=== PATIENT | male | born 1985 | race Caucasian/White ===

== ENCOUNTER 2024-08-01 13:09 | Inpatient (IN) | payer OTHER, SELFPAY ==
[2024-08-01] VITALS (19 sets, daily range): BP systolic 117–143; BP diastolic 59–81; PULSE 86–114; RESP 14–24; TEMP 36.4; O2SAT 97–100; BMI 47.5
[2024-08-01] MEDS: PANTOPRAZOLE 40 MG VIAL 80 MG IV (13:33)
--- NOTE | 2024-08-01 13:37 | EKG_ITS ---
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
[2024-08-01 13:40] LABS: Add Manual Diff / Slide Review NO; Basophils Absolute Auto 200 /uL (0-100); Basophils Percent Auto 1.2 % (0-2); Eosinophils Absolute Auto 100 /uL (0-450); Eosinophils Percent Auto 0.9 % (2-4); Hematocrit 36.7 % (41-53); Lymphocytes Absolute Auto 2900 /uL (1100-4500); Lymphocytes Percent Auto 23.2 % (25-40); Mean Corpuscular HGB Conc 32.6 % (30-36); Mean Corpuscular Hemoglobin 29.8 PG (26-34); Mean Corpuscular Volume 91.4 fL (80-100); Monocytes Absolute Auto 800 /uL (0-900); Monocytes Percent Auto 6.3 % (3-14); Neutrophils Absolute Auto 8500 /uL (1500-7000); Neutrophils Percent Auto 68.4 % (50-75); Platelet Count 197 X10^3/uL (150-400); Red Blood Cell Count 4.02 X10^6/uL (4.5-5.9); Red Cell Distribution Width 13.5 % (11.6-14.8); White Blood Cell Count 12.4 X10^3/uL (4.5-11.0)
[2024-08-01 13:43] LABS: Prothrombin Time 11.1 SECONDS (9.4-12.5)
[2024-08-01 13:46] LABS: PTT Partial Thromboplastin Tim 30 SECONDS (25.1-36.5)
--- NOTE | 2024-08-01 13:47 | ED.GIBLEED ---
HPI - GI Bleed General Chief complaint: GI Bleed Stated complaint: abd pain, black stool, light headed, sob Time Seen by Provider: 08/01/24 13:24 Source: patient Mode of arrival: Ambulatory History of Present Illness HPI Narrative: Patient is a 39-year-old male. No recent travel. No recent antibiotics. Not on anticoagulation. States last evening had some upper abdominal discomfort and chest discomfort. He states that he did not do anything about it but went to bed. When he woke up this morning he had a bowel movement that was black in color and ?tarry? he was had 2 subsequent bowel movements that have been the same. His abdominal pain is now gone. He states that today he was feeling very lightheaded and short of breath. No fevers. No urinary symptoms. No prior abdominal surgeries. No trauma. No lower extremity swelling. Related Data Allergies Allergy/AdvReac Type Severity Reaction Status Date / Time No Known Drug Allergies Allergy Verified 08/01/24 13:18 Review of Systems Review of Systems ROS Unobtainable: All systems reviewed & are unremarkable except as noted in HPI and below Patient History Social History Smoking Status: Never smoker Smoking Status: Never smoker Alcohol type: beer Exam Initial Vital Signs Initial Vital Signs: Vital Signs Temperature 97.6 F 08/01/24 13:16 Pulse Rate 109 H 08/01/24 13:16 Respiratory Rate 16 08/01/24 13:16 Blood Pressure 133/63 08/01/24 13:16 Pulse Oximetry 100 08/01/24 13:16 Oxygen Delivery Method Room Air 08/01/24 13:16 Const General: cooperative, comfortable and No ill appearing HENNH Head: normal to inspection and normocephalic Resp Effort & Inspection: normal respiratory effort Auscultation: clear to auscultation bilaterally Cardio Rate: tachycardic Rhythm: regular rhythm GI Inspection: normal to inspection and non-distended Palpation: soft, No firm and No tender Skin General: no rashes or lesions noted Neuro General: patient alert, patient awake, patient oriented x3 and moves all extremities Extrem General: No edema Course Orders Ordered: ED Orders 08/01/24 13:19 EKG-12 Lead Stat 08/01/24 13:28 Complete Blood Count AUTO DIFF Stat Comprehensive Metabolic Panel Stat PTT Partial Thromboplastin Roberto Carlos Stat Prothrombin Time INR Stat Type and Screen Stat 08/01/24 13:49 CT angio Abd/Pel GI Bleed Stat 08/01/24 14:09 GI Panel (Film Array) Stat 08/01/24 16:05 Hemoglobin and Hematocrit Stat 08/01/24 18:03 Hemoglobin and Hematocrit Stat 08/01/24 18:35 Consult to General Surgery Stat Ondansetron HCl (Ondansetron 4 Mg/2 Ml Inj) 4 mg IV NOW PRN PRN Reason: Nausea And Vomiting Ondansetron HCl (Ondansetron 4 Mg Odt) 4 mg SL NOW PRN PRN Reason: Nausea And Vomiting Discontinued Medications Pantoprazole Sodium (Pantoprazole 40 Mg Vial) 80 mg IV NOW ONE Stop: 08/01/24 13:20 Last Admin: 08/01/24 13:33 Dose: 80 mg Documented By: ANTHONY Vital Signs Vital signs: Vital Signs - 8 hr 08/01/24 13:16 08/01/24 13:16 08/01/24 13:17 Temperature 97.6 F Pulse Rate 109 H 106 H 108 H Respiratory Rate 16 Blood Pressure 133/63 Pulse Oximetry 100 100 100 Oxygen Delivery Method Room Air 08/01/24 13:17 08/01/24 13:30 08/01/24 13:32 Temperature Pulse Rate 97 H 99 H Respiratory Rate 21 20 Blood Pressure 133/63 Pulse Oximetry 100 100 Oxygen Delivery Method Room Air 08/01/24 13:32 08/01/24 14:14 08/01/24 14:37 Temperature Pulse Rate 114 H 100 H Respiratory Rate Blood Pressure 123/75 Pulse Oximetry Oxygen Delivery Method 08/01/24 14:43 08/01/24 14:43 08/01/24 15:00 Temperature Pulse Rate 98 H 95 H Respiratory Rate 22 22 Blood Pressure 136/76 Pulse Oximetry 100 99 Oxygen Delivery Method Room Air 08/01/24 15:00 08/01/24 15:30 08/01/24 15:30 Temperature Pulse Rate 87 Respiratory Rate 22 Blood Pressure 143/81 H 142/75 H Pulse Oximetry 100 Oxygen Delivery Method 08/01/24 16:00 08/01/24 16:00 08/01/24 16:39 Temperature Pulse Rate 91 H 98 H Respiratory Rate 24 Blood Pressure 138/76 Pulse Oximetry 98 100 Oxygen Delivery Method 08/01/24 16:42 08/01/24 16:42 08/01/24 17:00 Temperature Pulse Rate 93 H 90 Respiratory Rate 22 16 Blood Pressure 140/67 Pulse Oximetry 100 100 Oxygen Delivery Method Room Air 08/01/24 17:00 08/01/24 17:30 08/01/24 17:30 Temperature Pulse Rate 90 Respiratory Rate 23 Blood Pressure 126/67 119/63 Pulse Oximetry 97 Oxygen Delivery Method 08/01/24 18:00 08/01/24 18:00 08/01/24 18:30 Temperature Pulse Rate 86 86 Respiratory Rate 23 24 Blood Pressure 131/75 Pulse Oximetry 100 100 Oxygen Delivery Method Room Air MDM - GI Bleed Lab Data Attestation: I reviewed the patient's lab results. 08/01/24 18:03 08/01/24 13:28 Labs: Lab Results 08/01/24 08/01/24 08/01/24 Range/Units 13:28 14:09 16:05 WBC 12.4 H (4.5-11.0) X10^3/uL RBC 4.02 L (4.5-5.9) X10^6/uL Hgb 12.0 L 11.0 L (13.5-17.5) g/dL Hct 36.7 L 33.3 L (41-53) % MCV 91.4 (80-100) fL MCH 29.8 (26-34) PG MCHC 32.6 (30-36) % RDW 13.5 (11.6-14.8) % Plt Count 197 (150-400) X10^3/uL Neut % (Auto) 68.4 (50-75) % Lymph % (Auto) 23.2 L (25-40) % [place] % (Auto) 6.3 (3-14) % Eos % (Auto) 0.9 L (2-4) % Baso % (Auto) 1.2 (0-2) % Neut # (Auto) 8500 H (1295-3215) /uL Lymph # (Auto) 2900 (2584-0673) /uL [place] # (Auto) 800 (0-900) /uL Eos # (Auto) 100 (0-450) /uL Baso # (Auto) 200 H (0-100) /uL PT 11.1 (9.4-12.5) SECONDS INR 1.0 (0.9-1.3) APTT 30 (25.1-36.5) SECONDS Sodium 136 L (137-145) mmol/L Potassium 3.5 (3.4-5.1) mmol/L Chloride 102 (98-107) mmol/L Carbon Dioxide 28 (22-32) mmol/L BUN 55 H (9-20) mg/dL Creatinine 1.02 (0.66-1.25) mg/dL Estimated GFR > 60 (>60) mL/min BUN/Creatinine Ratio 53.9 H (6-22) Glucose 103 H (70-100) mg/dL Calcium 9.1 (8.4-10.2) mg/dL Total Bilirubin 0.7 (0.2-1.3) mg/dL AST 23 (17-59) IU/L ALT 25 (<50) IU/L Alkaline Phosphatase 45 (38-126) U/L Total Protein 7.0 (6.3-8.2) g/dL Albumin 4.2 (3.5-5.0) g/dL Globulin 2.8 (1.7-4.1) g/dL Albumin/Globulin Ratio 1.5 (1.0-2.8) Stl C. cayetanensis PCR Not detected (Not Detect) Stool Rotavirus (PCR) Not detected (Not Detect) Stool Adenovirus (PCR) Not detected (Not Detect) Stool Astrovirus (PCR) Not detected (Not Detect) Stool Cryptosporidium PCR Not detected (Not Detect) Stl E.coli Shiga Tox PCR Not detected (Not Detect) St Sh/Enteroin Ecoli PCR Not detected (Not Detect) Stl Enterotoxigenic E PCR Detected (Not Detect) Stool EPEC (PCR) Not detected (Not Detect) Stl E. histolytica PCR Not detected (Not Detect) Stool Giardia Lamblia PCR Not detected (Not Detect) Stool Sapovirus (PCR) Not detected (Not Detect) Stl P. shigelloides PCR Not detected (Not Detect) St Y.enterocolitica PCR Not detected (Not Detect) Stool Vibrio (PCR) Not detected (Not Detect) Stl Vibrio cholerae PCR Not detected (Not Detect) Stl Enteroaggr Ecoli PCR Not detected (Not Detect) Stl Norovirus GI/GII PCR Not detected (Not Detect) Campylobacter (PCR) Not detected (Not Detect) C. difficile Tox (PCR) Detected H (Not Detect) Salmonella (PCR) Not detected (Not Detect) Blood Type B Positive Antibody Screen Negative 08/01/24 Range/Units 18:03 WBC (4.5-11.0) X10^3/uL RBC (4.5-5.9) X10^6/uL Hgb 10.7 L (13.5-17.5) g/dL Hct 32.7 L (41-53) % MCV (80-100) fL MCH (26-34) PG MCHC (30-36) % RDW (11.6-14.8) % Plt Count (150-400) X10^3/uL Neut % (Auto) (50-75) % Lymph % (Auto) (25-40) % [place] % (Auto) (3-14) % Eos % (Auto) (2-4) % Baso % (Auto) (0-2) % Neut # (Auto) (5898-4772) /uL Lymph # (Auto) (3997-3745) /uL [place] # (Auto) (0-900) /uL Eos # (Auto) (0-450) /uL Baso # (Auto) (0-100) /uL PT (9.4-12.5) SECONDS INR (0.9-1.3) APTT (25.1-36.5) SECONDS Sodium (137-145) mmol/L Potassium (3.4-5.1) mmol/L Chloride (98-107) mmol/L Carbon Dioxide (22-32) mmol/L BUN (9-20) mg/dL Creatinine (0.66-1.25) mg/dL Estimated GFR (>60) mL/min BUN/Creatinine Ratio (6-22) Glucose (70-100) mg/dL Calcium (8.4-10.2) mg/dL Total Bilirubin (0.2-1.3) mg/dL AST (17-59) IU/L ALT (<50) IU/L Alkaline Phosphatase (38-126) U/L Total Protein (6.3-8.2) g/dL Albumin (3.5-5.0) g/dL Globulin (1.7-4.1) g/dL Albumin/Globulin Ratio (1.0-2.8) Stl C. cayetanensis PCR (Not Detect) Stool Rotavirus (PCR) (Not Detect) Stool Adenovirus (PCR) (Not Detect) Stool Astrovirus (PCR) (Not Detect) Stool Cryptosporidium PCR (Not Detect) Stl E.coli Shiga Tox PCR (Not Detect) St Sh/Enteroin Ecoli PCR (Not Detect) Stl Enterotoxigenic E PCR (Not Detect) Stool EPEC (PCR) (Not Detect) Stl E. histolytica PCR (Not Detect) Stool Giardia Lamblia PCR (Not Detect) Stool Sapovirus (PCR) (Not Detect) Stl P. shigelloides PCR (Not Detect) St Y.enterocolitica PCR (Not Detect) Stool Vibrio (PCR) (Not Detect) Stl Vibrio cholerae PCR (Not Detect) Stl Enteroaggr Ecoli PCR (Not Detect) Stl Norovirus GI/GII PCR (Not Detect) Campylobacter (PCR) (Not Detect) C. difficile Tox (PCR) (Not Detect) Salmonella (PCR) (Not Detect) Blood Type Antibody Screen Point of Care Testing Stool Occult Blood Positive Urine Dip Bedside Urine Glucose Negative Bedside Urine Bilirubin - Negative Bedside Urine Ketone - Negative Urine Specific [place] 1.015 Bedside Urine Occult Blood - Negative Bedside Urine pH 6.0 Bedside Urine Protein - Negative Bedside Urine Urobilinogen - Negative Bedside Urine Nitrite - Negative Bedside Urine Leukocytes - Negative Esterase Imaging Data CT scan - abdomen/pelvis: Radiologist's Impression: PROCEDURE: CT ANGIO ABD/PEL GI BLEED INDICATIONS: GI Bleed TECHNIQUE: After the administration of intravenous contrast, 2.5 mm thick sections acquired from the diaphragm to the symphysis. 10 mm maximum-intensity projection (MIP) reformats were then acquired. For radiation dose reduction, the following was used: automated exposure control. COMPARISON: None. FINDINGS: Image Quality: Diagnostic. Abdominal aorta: No aortic aneurysm or evidence of acute aortic syndrome. Mesenteric arteries: Patent without hemodynamically significant stenosis. Renal arteries: Patent without hemodynamically significant stenosis. OTHER: Lower Chest: No significant findings. Liver: No solid mass. Gallbladder: No radiopaque gallstones or wall thickening. Biliary ducts: No biliary dilation. Pancreas: No ductal dilation. Spleen: Size is within normal limits. Adrenal Glands: No adrenal nodules. Kidneys and Ureters: No hydronephrosis. No solid mass. No complex renal cystic lesion which requires follow up. Stomach and Bowel: Moderate hiatal hernia. Normal colonic caliber, without significant wall thickening. Mild diverticulosis without evidence of acute diverticulitis. No acute bowel hemorrhage. Peritoneum: No abnormal intraperitoneal fluid. No free air. Ventral Wall: No hernia. Abdominal Nodes: No retroperitoneal or mesenteric adenopathy by size criteria. Vessels: Aorta and inferior vena cava are normal in size. PELVIS: Pelvic Organs: Unremarkable. Bladder: Unremarkable. Pelvic Nodes: No enlarged lymph nodes. Miscellaneous: Small fat containing left inguinal hernia. Bones: No aggressive osseous abnormality. IMPRESSION: 1. No evidence of acute GI bleed. 2. Moderate hiatal hernia. 3. Mild diverticulosis without evidence of acute diverticulitis. 4. No acute abdominal process. ECG Data Attestation: I personally reviewed and interpreted this ECG as follows: Interpretation: Sinus rhythm Ventricular rate 97 Normal axis Normal QRS Normal QTC No ST T wave changes MDM Narrative Medical decision making narrative: Patient did have a drop in his hemoglobin and hematocrit over multiple checks in the emergency department. He did have black tarry stool here in the ER. He was not having diarrhea. No vomiting. No specific risk factors for an upper GI bleed. He was positive for entero toxigenic E coli and C diff however his stools are not consistent with active infections of these bacteria. We will hold on any antibiotics for now. Patient was still symptomatic with standing. Discussed the case with Dr. Valle on-call for General surgery who recommended the patient be made NPO after midnight that he would see the patient in the morning to discuss upper endoscopy. I also discussed the case with Dr. Irizarry hospitalist on-call who will admit. Discussed the need for admission with the patient. He expressed understanding and agreement with plan. Discharge Plan Departure Patient Disposition: Admitted as Observation Clinical Impression: Melena, Anemia
[2024-08-01 13:50] LABS: Alanine Aminotransferase 25 IU/L (<50); Albumin 4.2 g/dL (3.5-5.0); Albumin Globulin Ratio 1.5 (1.0-2.8); Alkaline Phosphatase 45 U/L (38-126); Aspartate Aminotransferase 23 IU/L (17-59); BUN Creatinine Ratio 53.9 (6-22); Bilirubin Total 0.7 mg/dL (0.2-1.3); Blood Urea Nitrogen 55 mg/dL (9-20); Calcium 9.1 mg/dL (8.4-10.2); Carbon Dioxide 28 mmol/L (22-32); Chloride 102 mmol/L (98-107); Estimated Glomerular Filt Rate > 60 mL/min (>60); Globulin 2.8 g/dL (1.7-4.1); Glucose 103 mg/dL (70-100); HEMOLYSIS < 15 (0-50); Potassium 3.5 mmol/L (3.4-5.1); Sodium 136 mmol/L (137-145)
[2024-08-01 16:12] LABS: Hematocrit 33.3 % (41-53)
[2024-08-01 18:05] LABS: Adenovirus F 40/41 Not Detected (Not Detect); Astrovirus Not Detected (Not Detect); Campylobacter Not Detected (Not Detect); Cryptosporidium Not Detected (Not Detect); Cyclospora cayetanensis Not Detected (Not Detect); Entamoeba histolytica Not Detected (Not Detect); Enteroaggregative E.coli Not Detected (Not Detect); Enteropathogenic E.coli Not Detected (Not Detect); Enterotoxigenic E.coli It/st Detected (Not Detect); Giardia lamblia Not Detected (Not Detect); Norovirus GI/GII Not Detected (Not Detect); Plesiomonsa shigelloides Not Detected (Not Detect); Rotavirus A Not Detected (Not Detect); Salmonella Not Detected (Not Detect); Sapovirus Not Detected (Not Detect); Shiga-like toxin-prod E.coli Not Detected (Not Detect); Shigella/Enteroinvasive E.coli Not Detected (Not Detect); Vibrio Not Detected (Not Detect); Vibrio cholerae Not Detected (Not Detect); Yersinia enterocolitica Not Detected (Not Detect)
[2024-08-01 18:11] LABS: Hematocrit 32.7 % (41-53); Hemoglobin 10.7 g/dL (13.5-17.5)
[2024-08-01 18:27] LABS: Clostridium difficile toxin AB Detected (Not Detect)
[2024-08-01] MEDS: SODIUM CHLORIDE 0.9% 1,000 ML 100 ML IV (21:16)
[2024-08-01] MEDS: MORPHINE 4 MG/ML INJ 3 MG IV (21:39)
[2024-08-01] MEDS: ONDANSETRON 4 MG/2 ML INJ IV (21:40)
[2024-08-01 23:48] LABS: Hematocrit 31.8 % (41-53); Hemoglobin 10.5 g/dL (13.5-17.5)
[2024-08-02] VITALS (9 sets, daily range): BP systolic 111–147; BP diastolic 53–78; PULSE 68–88; RESP 14–19; TEMP 35.9–36.7; O2SAT 97–100
--- NOTE | 2024-08-02 | PATH_ITS ---
[facility] Accession Number: [id number] No. of containers..01 Tissue . 01 Material submitted: . duodenum - DUODENUM . 01 Diagnosis: DUODENUM: Duodenal mucosa with no diagnostic alterations. No active inflammation and no evidence of celiac disease. [facility] 08/04/2024 1156 Local . 01 Electronically signed: . Jim Christensen MD, Pathologist NPI- [id number] . 01 Gross description: . Received in formalin with two patient identifiers and duodenum, are two de [place] ve[place] soft tissue fragments, 0.3 to 0.4 cm in greatest dimension, submitted in A1. ([id number]) /MRV 08/04/2024 1156 Local . 01 Pathologist provided ICD-10: K92.1 . 01 CPT . 417268 Specimen Comment: A courtesy copy of this report has been sent to [phone] Performed at: [address] [id number] MD Jim Christensen MD Phone: [phone]
--- NOTE | 2024-08-02 00:03 | P.HP_ITS ---
History of Present Illness History of Present Illness Date Patient Seen: 08/01/24 Date of Onset of Symptoms: 07/31/24 Chief complaint: abd pain, black stool, light headed, sob Narrative: Sha De Jesus is a 39 year old , male, with h/o HTN, acid reflux, former smoker, who presented to ED today with complaints of Upper Abd and Lower Chest Discomfort and Tarry stools. He states he noted last evening upper abdominal discomfort, with radiation to , mid abd, james umbilical, lower chest,area, no radiation into his arms, neck or jaw. He also had sme gassiness and Acid reflux symptoms. He denies vomiting, fever, chills, cough , dysuria or hematuria. He went to bed, and was able to sleep, however in the morning, he again noted the abd pain , now at 7/10 and noted his bowel movement, to be tarry formed stool, no BRBPR. He had 3 such BMs, and he was feeling light headed, and very tired with some Shortness of breath with mild exertion as the day progressed. No Syncope.He had nausea, no vomiting, denies bloody or coffee ground vomiting. He had some intermittent flank pain , when he turns in the hospital bed, but its not consistent. He drinks 3 beers, or a glass of wine per day. He has no h/o PUD, Liver Disease, not taking A/C or ASA A week ago, he had noted 2 bouts of yellow watery BMs, with some lower abd cram,ping, which has subsided. He denied any outside food at that time. 2 days ago he had a cheese burger from [employer] but no GI symptoms including Diarrhea or abd pain after eating the burger, until his symptoms yesterday. In ED , he was noted to be tachycardiac ( 92-99), BP stable Afebrile, No Tachypnea, O2 sats 100% on RA Labs Significant for BUN up at 55, H/ H initial 12/ 36.7 repeat HH 10.7/32.7 Mild Leukocytosis WBC 12.4 PT/INR WNL Stool + for C diff and Entero toxigenic E coli He was given IV Protonix at 80 mg IV , and Zofran He had about 6 Tarry BMS while in ED Gen Surgery consulted , and they advised NPO after midnight for EGD in the morning. Pt was referred to Telemedicine Hospitalist for admission, to continue close HH monitoring as well as further Tarry stools and cardio pulmonary status. FOR[facility]LY [facility], [facility] Medical History (Updated 08/02/24 @ 07:19 by Lou Santacruz MD) Stool culture positive for Clostridioides difficile Melena Social History (Updated 08/02/24 @ 00:30 by Lou Santacruz MD) household members: spouse Smoking Status: Former smoker alcohol intake: current substance use type: does not use Meds Home Medications and Allergies Home Medications Medication Instructions Recorded Confirmed Type amlodipine 10 mg tablet 10 mg PO DAILY 08/01/24 08/01/24 History hydrochlorothiazide 12.5 mg tablet 12.5 mg PO DAILY 08/01/24 08/01/24 History Allergies Allergy/AdvReac Type Severity Reaction Status Date / Time No Known Drug Allergies Allergy Verified 08/01/24 13:18 Review of Systems Review of Systems ROS: Yes All systems reviewed with the patient and are negative except as otherwise documented Constitutional Constitutional: Reports as per HPI Cardiovascular Cardiovascular: Reports as per HPI Respiratory Respiratory: Reports as per HPI Gastrointestinal Gastrointestinal: Reports as per HPI, Reports belching, Reports melena and Reports bloating Genitourinary Genitourinary: Reports as per HPI Musculoskeletal Musculoskeletal: Reports as per HPI Integumentary/Breasts Skin/Breast: Reports as per HPI Comments: no rash , cyanosis Neurologic Neurologic: Reports as per HPI Psychiatric Psychiatric: Reports as per HPI Endocrine Comments: denies h/o DM or Thyroid or Adrenal problems Hematologic/Lymphatic Hematologic/Lymphatic: Reports as per HPI Comments: no h/o easy bruising not taking anti coagulants Allergic/Immunologic Comments: denies wheezing, rashes, food allergies Exam Vital Signs (past 8 hours): - 08/01/24 16:39 08/01/24 16:42 08/01/24 16:42 Temperature Pulse Rate 98 H 93 H Respiratory Rate 22 Blood Pressure 140/67 Pulse Oximetry 100 100 Oxygen Delivery Method Oxygen Flow Rate 08/01/24 17:00 08/01/24 17:00 08/01/24 17:30 Temperature Pulse Rate 90 Respiratory Rate 16 Blood Pressure 126/67 119/63 Pulse Oximetry 100 Oxygen Delivery Method Room Air Oxygen Flow Rate 08/01/24 17:30 08/01/24 18:00 08/01/24 18:00 Temperature Pulse Rate 90 86 Respiratory Rate 23 23 Blood Pressure 131/75 Pulse Oximetry 97 100 Oxygen Delivery Method Oxygen Flow Rate 08/01/24 18:30 08/01/24 19:30 08/01/24 19:30 Temperature Pulse Rate 86 92 H Respiratory Rate 24 14 Blood Pressure 141/69 H Pulse Oximetry 100 99 Oxygen Delivery Method Room Air Room Air Oxygen Flow Rate 08/01/24 20:00 08/01/24 20:00 08/01/24 20:35 Temperature 97.5 F L Pulse Rate 99 H 93 H Respiratory Rate 20 16 Blood Pressure 117/59 L 143/62 H Pulse Oximetry 99 100 Oxygen Delivery Method Room Air Oxygen Flow Rate 0 08/01/24 21:55 Temperature Pulse Rate Respiratory Rate Blood Pressure Pulse Oximetry Oxygen Delivery Method Room Air Oxygen Flow Rate Oxygen Delivery Method Room Air Oxygen Flow Rate 0 Narrative Exam Narrative: Appears tired, awake and alert, answering questions appropriately. no acute distress Const General: cooperative and comfortable Nutritional Appearance: overweight Orientation: alert, awake and oriented x3 HENMT Other: HEENT: AT/ NC Sclera: no icterus , Conjunctivae: no pallor, EOMI PERRL Oral MM : dry, Throat: No redness or swelling Eyes General: appearance normal, both eyes and all related structures Visual Fiore: normal visual fiore by confrontation Other: see above : EYE exam : WNL Neck Thyroid: thyroid normal Other: No Lymphadenopathy Chest Chest: normal inspection of the chest and normal palpation of entire chest wall Other: RESP: CTA, BS present bilat and equal ( per Bedside Nurse report) Resp Effort & Inspection: normal respiratory effort and able to speak in complete sentences Auscultation: clear to auscultation bilaterally Percussion: percussion normal Cardio Palpation: normal PMI Rate: regular rate Rhythm: regular rhythm Heart Sounds: S1 normal and S2 normal Bruits: other (no bruit) Pulses: other (2+ bilat symmetric ) Other: HEART: RRR, S1 , S2 No M/G/R Peripheral pulses WNL bilat in upper and lower extremities No edema/ cyanosis or clubbing No Calf Tenderness bilat GI Inspection: normal to inspection Palpation: soft Percussion: normal to percussion Auscultation: normal bowel sounds Other: Abd: Non distended, mild epigastric discomfort, No mass or organomegaly, BS present x all 4 quadrants and WNL No flank tenderness bilat Back/Spine/Pelvis Other: neck is supple , no TMG Skin General: no rashes or lesions noted Wounds: no wounds Nails: normal Other: no rashes, non clammy Skin exam is WNL Neuro General: patient alert, patient awake, patient oriented x3, moves all extremities and CN's II-XI intact bilaterally Cognition: normal cognition Speech: speech normal Motor: muscle tone normal throughout and strength 5/5 throughout Sensory Exam: no sensory deficits noted Comatose Patient: other (DTRs WNL bilat Symmetric) Other: Neuro: WNL, Motor and Sensory exam WNL No tremors Extrem General: normal to inspection, full ROM, capillary refill normal, no clubbing, cyanosis or edema, no pedal edema and no calf tenderness Psych Appearance: grossly normal and well kempt Mental Status: mental status grossly normal Speech and Movement: speech and movement normal Mood: congruent mood Affect: normal affect Attitude: cooperative Thought Process: normal Thought Content: normal Judgment: judgment good Objective ECG Impression: Reviewed by me: NSR HR 97 , no acute ST- T wave changes Imaging CT scan - abdomen: Radiologist's impression: No evidence of acute GI bleed. 2. Moderate hiatal hernia. 3. Mild diverticulosis without evidence of acute diverticulitis. 4. No acute abdominal process. Labs 08/02/24 04:30 08/02/24 04:30 Labs: Laboratory Results - last 24 hr 08/01/24 08/01/24 08/01/24 13:28 14:09 16:05 WBC 12.4 H RBC 4.02 L Hgb 12.0 L 11.0 L Hct 36.7 L 33.3 L MCV 91.4 MCH 29.8 MCHC 32.6 RDW 13.5 Plt Count 197 Neut % (Auto) 68.4 Lymph % (Auto) 23.2 L [place] % (Auto) 6.3 Eos % (Auto) 0.9 L Baso % (Auto) 1.2 Neut # (Auto) 8500 H Lymph # (Auto) 2900 [place] # (Auto) 800 Eos # (Auto) 100 Baso # (Auto) 200 H PT 11.1 INR 1.0 APTT 30 Sodium 136 L Potassium 3.5 Chloride 102 Carbon Dioxide 28 BUN 55 H Creatinine 1.02 Estimated GFR > 60 BUN/Creatinine Ratio 53.9 H Glucose 103 H Calcium 9.1 Total Bilirubin 0.7 AST 23 ALT 25 Alkaline Phosphatase 45 Total Protein 7.0 Albumin 4.2 Globulin 2.8 Albumin/Globulin Ratio 1.5 Stl C. cayetanensis PCR Not detected Stool Rotavirus (PCR) Not detected Stool Adenovirus (PCR) Not detected Stool Astrovirus (PCR) Not detected Stool Cryptosporidium PCR Not detected Stl E.coli Shiga Tox PCR Not detected St Sh/Enteroin Ecoli PCR Not detected Stl Enterotoxigenic E PCR Detected Stool EPEC (PCR) Not detected Stl E. histolytica PCR Not detected Stool Giardia Lamblia PCR Not detected Stool Sapovirus (PCR) Not detected Stl P. shigelloides PCR Not detected St Y.enterocolitica PCR Not detected Stool Vibrio (PCR) Not detected Stl Vibrio cholerae PCR Not detected Stl Enteroaggr Ecoli PCR Not detected Stl Norovirus GI/GII PCR Not detected Campylobacter (PCR) Not detected C. difficile Tox (PCR) Detected H Salmonella (PCR) Not detected Blood Type B Positive Antibody Screen Negative 08/01/24 08/01/24 18:03 23:25 WBC RBC Hgb 10.7 L 10.5 L Hct 32.7 L 31.8 L MCV MCH MCHC RDW Plt Count Neut % (Auto) Lymph % (Auto) [place] % (Auto) Eos % (Auto) Baso % (Auto) Neut # (Auto) Lymph # (Auto) [place] # (Auto) Eos # (Auto) Baso # (Auto) PT INR APTT Sodium Potassium Chloride Carbon Dioxide BUN Creatinine Estimated GFR BUN/Creatinine Ratio Glucose Calcium Total Bilirubin AST ALT Alkaline Phosphatase Total Protein Albumin Globulin Albumin/Globulin Ratio Stl C. cayetanensis PCR Stool Rotavirus (PCR) Stool Adenovirus (PCR) Stool Astrovirus (PCR) Stool Cryptosporidium PCR Stl E.coli Shiga Tox PCR St Sh/Enteroin Ecoli PCR Stl Enterotoxigenic E PCR Stool EPEC (PCR) Stl E. histolytica PCR Stool Giardia Lamblia PCR Stool Sapovirus (PCR) Stl P. shigelloides PCR St Y.enterocolitica PCR Stool Vibrio (PCR) Stl Vibrio cholerae PCR Stl Enteroaggr Ecoli PCR Stl Norovirus GI/GII PCR Campylobacter (PCR) C. difficile Tox (PCR) Salmonella (PCR) Blood Type Antibody Screen Assessment & Plan Assessment and plan (1) UGIB (upper gastrointestinal bleed): Problem details: Melena / Tarry stool Status: Acute (2) Acute blood loss anemia: Status: Acute (3) E. coli exposure: Status: Acute (4) Hiatal hernia with GERD: Status: Acute (5) Fatigue: Status: Acute (6) Elevated BUN: Status: Acute (7) Acute hypokalemia: Status: Acute Plan see below Assessment & Plan narrative: 1/ UGIB , symptomatic, with improvement in symptoms of light headedness after IVF given, with Acute Blood Loss Anemia in pt with h/o GERD, Large Hiatal Hernia noted on CTA Abd ? Pelvis, denies recent NSAID use, denies heavy Alcohol consumption Monitor HH q 4 hours Type and Screen Transfuse PRBC if Hb 7 gms or < or > 7 gms, in presence of Cardiovascular compromise Informed consent re: PRBCs discussed with patient, he agrees to PRBC transfusion as needed, currently Hct is stable, shall continue to monitor, pt has not had any further Tarry stools since on Acute med Surg bed. Hb has dropped by 3 grams from 12 gms to 10.7 to 9.6 this am Continue on Cardiac monitoring and continous O2 sat monitoring Nurse instructed to monitor and document any additional BM<s, bridgett Tarry stools , pt has not noted any BRBPR since his symptoms started yesterday. Protonix 80 mg IV recd in ED , continue Protonix 40 mg IV q 12 hrs, start 12 hrs after ED dose Zofran prn General Surgery consulted per ED Provider. Pt NPO after midnight per GS, for EGD in the morning Shall continue maintenance NS IVF while NPO Elevated BUN sec to UGIB , shall monitor, keep hydrated , Creat WNL Monitor Electrolytes Acute Hypokalemia K at 3.3 on morning lab, sec to decreased oral intake, shall replenish , check Mg and continue to monitor Electrolytes C diff + on stool analysis: Patient has no acute diarrhea, stools are formed, denies recent abx intake, likely pt is a carrier of C diff. Continue enteric Isolation Entero toxigenic E Col;i detected on stool analysis : No diarrhea, no N/V , Afebrile Mild Leukocytosis at 12 K , likely reactionary sec to Acute UGIB, repeat CBC : WBC WNL Hold Antibiotics as patient has no loose watery stools, is afebrile , likey past exposure , does not seen like an acute E Coli infection. Continue Enteric Isol;ation. Chronic HTN , BPs stable , continue home Anti HTN med Time-Based Coding :: [TOTAL MINUTES] spent with patient and on the chart (including review of chart, obtaining history, exam, reviewing outside data, placing orders, documenting exam and treatment plan, and counseling patient) on [DATE]. Quality VTE Deep Vein Thrombosis/Pulmonary Embolism Present on Admission: No
[2024-08-02] MEDS: PANTOPRAZOLE 40 MG VIAL IV ×3 (00:44→21:13)
[2024-08-02 05:06] LABS: Add Manual Diff / Slide Review NO; Basophils Absolute Auto 0 /uL (0-100); Basophils Percent Auto 0.6 % (0-2); Eosinophils Absolute Auto 200 /uL (0-450); Eosinophils Percent Auto 4.4 % (2-4); Hematocrit 29.2 % (41-53); Hemoglobin 9.6 g/dL (13.5-17.5); Lymphocytes Absolute Auto 1400 /uL (1100-4500); Lymphocytes Percent Auto 27.6 % (25-40); Monocytes Absolute Auto 400 /uL (0-900); Monocytes Percent Auto 8.5 % (3-14); Neutrophils Absolute Auto 3000 /uL (1500-7000); Neutrophils Percent Auto 58.9 % (50-75); Platelet Count 174 X10^3/uL (150-400); Red Blood Cell Count 3.21 X10^6/uL (4.5-5.9); Red Cell Distribution Width 13.5 % (11.6-14.8); White Blood Cell Count 5.1 X10^3/uL (4.5-11.0)
[2024-08-02 05:12] LABS: Prothrombin Time 11.8 SECONDS (9.4-12.5)
[2024-08-02 05:18] LABS: BUN Creatinine Ratio 37.3 (6-22); Blood Urea Nitrogen 38 mg/dL (9-20); Calcium 8.4 mg/dL (8.4-10.2); Carbon Dioxide 29 mmol/L (22-32); Chloride 105 mmol/L (98-107); Estimated Glomerular Filt Rate > 60 mL/min (>60); Glucose 124 mg/dL (70-100); HEMOLYSIS < 15 (0-50); Potassium 3.3 mmol/L (3.4-5.1); Sodium 137 mmol/L (137-145)
[2024-08-02] MEDS: SODIUM CHLORIDE 0.9% 1,000 ML 100 ML IV ×2 (07:04→14:23)
--- NOTE | 2024-08-02 08:03 | PM.PN.1 ---
Subjective Subjective Interval history: Summary: Patient was a 39-year-old male with history of hypertension and reflux who presented with abdominal pain and black tarry stools. The patient has 3 drinks of alcohol a day and no history of known PUD, or liver disease. Upon arrival he had stable vital signs and a hemoglobin of 10.7. He had no diarrhea, but a stool PCR was obtained and was positive for C diff and entero toxigenic E coli. ED course: He was given IV Protonix and general surgery was consulted. S: He does have epigastric abdominal pain but denies any vomiting or hematemesis. He has only melena for 1 day and denies any diarrhea or bright red blood per rectum. He did feel somewhat weak and did have transient confusion prior to coming in. He is not confused today. Exam Vital Signs (past 8 hours): - 08/02/24 04:00 Temperature 96.7 F L Pulse Rate 71 Respiratory Rate 18 Blood Pressure 114/61 Pulse Oximetry 100 Oxygen Flow Rate 0 Oxygen Delivery Method Room Air Oxygen Flow Rate 0 Narrative Exam Narrative: NAD, alert and oriented. Fluent speech. Lungs are clear, normal rate and effort. Heart is regular, no murmur gallop or rub. Abdomen is soft, non distended. Some tenderness in the epigastric region, no guarding or rebound. Extremities are free of edema. Objective ECG Impression: Normal sinus rhythm Imaging Abdomen Pelvis CTA:: Radiologist's impression: 1. No evidence of acute GI bleed. 2. Moderate hiatal hernia. 3. Mild diverticulosis without evidence of acute diverticulitis. 4. No acute abdominal process. Labs 08/02/24 04:30 08/02/24 04:30 Labs: Laboratory Results - last 24 hr 08/01/24 08/01/24 08/01/24 13:28 14:09 16:05 WBC 12.4 H RBC 4.02 L Hgb 12.0 L 11.0 L Hct 36.7 L 33.3 L MCV 91.4 MCH 29.8 MCHC 32.6 RDW 13.5 Plt Count 197 Neut % (Auto) 68.4 Lymph % (Auto) 23.2 L [place] % (Auto) 6.3 Eos % (Auto) 0.9 L Baso % (Auto) 1.2 Neut # (Auto) 8500 H Lymph # (Auto) 2900 [place] # (Auto) 800 Eos # (Auto) 100 Baso # (Auto) 200 H PT 11.1 INR 1.0 APTT 30 Sodium 136 L Potassium 3.5 Chloride 102 Carbon Dioxide 28 BUN 55 H Creatinine 1.02 Estimated GFR > 60 BUN/Creatinine Ratio 53.9 H Glucose 103 H Calcium 9.1 Total Bilirubin 0.7 AST 23 ALT 25 Alkaline Phosphatase 45 Total Protein 7.0 Albumin 4.2 Globulin 2.8 Albumin/Globulin Ratio 1.5 Stl C. cayetanensis PCR Not detected Stool Rotavirus (PCR) Not detected Stool Adenovirus (PCR) Not detected Stool Astrovirus (PCR) Not detected Stool Cryptosporidium PCR Not detected Stl E.coli Shiga Tox PCR Not detected St Sh/Enteroin Ecoli PCR Not detected Stl Enterotoxigenic E PCR Detected Stool EPEC (PCR) Not detected Stl E. histolytica PCR Not detected Stool Giardia Lamblia PCR Not detected Stool Sapovirus (PCR) Not detected Stl P. shigelloides PCR Not detected St Y.enterocolitica PCR Not detected Stool Vibrio (PCR) Not detected Stl Vibrio cholerae PCR Not detected Stl Enteroaggr Ecoli PCR Not detected Stl Norovirus GI/GII PCR Not detected Campylobacter (PCR) Not detected C. difficile Tox (PCR) Detected H Salmonella (PCR) Not detected Blood Type B Positive Antibody Screen Negative 08/01/24 08/01/24 08/02/24 18:03 23:25 04:30 WBC 5.1 D RBC 3.21 L Hgb 10.7 L 10.5 L 9.6 L Hct 32.7 L 31.8 L 29.2 L MCV 91.0 MCH 30.0 MCHC 33.0 RDW 13.5 Plt Count 174 Neut % (Auto) 58.9 Lymph % (Auto) 27.6 [place] % (Auto) 8.5 Eos % (Auto) 4.4 H Baso % (Auto) 0.6 Neut # (Auto) 3000 Lymph # (Auto) 1400 [place] # (Auto) 400 Eos # (Auto) 200 Baso # (Auto) 0 PT 11.8 INR 1.0 APTT Sodium 137 Potassium 3.3 L Chloride 105 Carbon Dioxide 29 BUN 38 H Creatinine 1.02 Estimated GFR > 60 BUN/Creatinine Ratio 37.3 H Glucose 124 H Calcium 8.4 Total Bilirubin AST ALT Alkaline Phosphatase Total Protein Albumin Globulin Albumin/Globulin Ratio Stl C. cayetanensis PCR Stool Rotavirus (PCR) Stool Adenovirus (PCR) Stool Astrovirus (PCR) Stool Cryptosporidium PCR Stl E.coli Shiga Tox PCR St Sh/Enteroin Ecoli PCR Stl Enterotoxigenic E PCR Stool EPEC (PCR) Stl E. histolytica PCR Stool Giardia Lamblia PCR Stool Sapovirus (PCR) Stl P. shigelloides PCR St Y.enterocolitica PCR Stool Vibrio (PCR) Stl Vibrio cholerae PCR Stl Enteroaggr Ecoli PCR Stl Norovirus GI/GII PCR Campylobacter (PCR) C. difficile Tox (PCR) Salmonella (PCR) Blood Type Antibody Screen [facility] Medical History Stool culture positive for Clostridioides difficile Melena Social History household members: spouse Smoking Status: Former smoker alcohol intake: current substance use type: does not use Assessment & Plan Assessment & Plan narrative: 1. UGIB with melena, present on admission and active. General Surgery consulted per ED Provider. Pt NPO after midnight per GS, for EGD in the morning 2. Acute blood loss anemia, present on admission and active. 3. Acute Hypokalemia, present on admission and active. 4. 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 Continue enteric Isolation 5. Entero toxigenic E Col;i detected on stool analysis : No diarrhea, no N/V , Afebrile Mild Leukocytosis at 12 K , likely reactionary sec to Acute UGIB, repeat CBC : WBC WNL Hold Antibiotics as patient has no loose watery stools, is afebrile , likey past exposure , does not seen like an acute E Coli infection. Continue Enteric Isol;ation. 6. Chronic HTN, present on admission and active. Plan: -NPO, continue IV fluids. -IV Protonix, monitor hemoglobin. -EGD per surgery, today. -monitor for diarrhea JANNY: 08/03 Time-Based Coding :: [TOTAL MINUTES] spent with patient and on the chart (including review of chart, obtaining history, exam, reviewing outside data, placing orders, documenting exam and treatment plan, and counseling patient) on [DATE]. Quality VTE Deep Vein Thrombosis/Pulmonary Embolism Present on Admission: No
[2024-08-02] MEDS: POTASSIUM CHLORIDE IN WATER 10 MEQ/100 ML PIGGYBACK 100 MEQ IV (08:40)
[2024-08-02] MEDS: POTASSIUM CHLORIDE IN WATER 10 MEQ/100 ML PIGGYBACK 75 MEQ IV ×3 (09:40→12:23)
[2024-08-02 12:14] LABS: Hematocrit 29.1 % (41-53); Hemoglobin 9.6 g/dL (13.5-17.5)
--- NOTE | 2024-08-02 15:43 | P.CONS_ITS ---
History of Present Illness Consult details Date Patient Seen: 08/02/24 Time Patient Seen: 15:43 Chief complaint: abd pain, black stool, light headed, sob Narrative: 39-year-old man admitted to the hospital with a GI bleed presumably upper. Black tarry stool and upper abdominal pain with nausea no emesis. No hematemesis no history of prior peptic ulcer disease. He is not on anticoagulation. Meds Home Medications and Allergies Home Medications Medication Instructions Recorded Confirmed Type amlodipine 10 mg tablet 10 mg PO DAILY 08/01/24 08/01/24 History hydrochlorothiazide 12.5 mg tablet 12.5 mg PO DAILY 08/01/24 08/01/24 History Allergies Allergy/AdvReac Type Severity Reaction Status Date / Time No Known Drug Allergies Allergy Verified 08/01/24 13:18 Exam Vital Signs (past 8 hours): - 08/02/24 10:55 08/02/24 15:38 Temperature 97.4 F L 97.5 F L Pulse Rate 68 75 Respiratory Rate 17 18 Blood Pressure 111/60 119/78 Pulse Oximetry 97 100 Oxygen Delivery Method Room Air Oxygen Flow Rate 0 Oxygen Delivery Method Room Air Oxygen Flow Rate 0 Narrative Exam Narrative: General adult man alert oriented no acute distress Chest nonlabored respiration Extremities warm well perfused Objective Labs 08/02/24 12:06 08/02/24 04:30 Labs: Laboratory Results - last 24 hr 08/01/24 08/01/24 08/01/24 14:09 16:05 18:03 WBC RBC Hgb 11.0 L 10.7 L Hct 33.3 L 32.7 L MCV MCH MCHC RDW Plt Count Neut % (Auto) Lymph % (Auto) [place] % (Auto) Eos % (Auto) Baso % (Auto) Neut # (Auto) Lymph # (Auto) [place] # (Auto) Eos # (Auto) Baso # (Auto) PT INR Sodium Potassium Chloride Carbon Dioxide BUN Creatinine Estimated GFR BUN/Creatinine Ratio Glucose Calcium Stl C. cayetanensis PCR Not detected Stool Rotavirus (PCR) Not detected Stool Adenovirus (PCR) Not detected Stool Astrovirus (PCR) Not detected Stool Cryptosporidium PCR Not detected Stl E.coli Shiga Tox PCR Not detected St Sh/Enteroin Ecoli PCR Not detected Stl Enterotoxigenic E PCR Detected Stool EPEC (PCR) Not detected Stl E. histolytica PCR Not detected Stool Giardia Lamblia PCR Not detected Stool Sapovirus (PCR) Not detected Stl P. shigelloides PCR Not detected St Y.enterocolitica PCR Not detected Stool Vibrio (PCR) Not detected Stl Vibrio cholerae PCR Not detected Stl Enteroaggr Ecoli PCR Not detected Stl Norovirus GI/GII PCR Not detected Campylobacter (PCR) Not detected C. difficile Tox (PCR) Detected H Salmonella (PCR) Not detected 08/01/24 08/02/24 08/02/24 23:25 04:30 12:06 WBC 5.1 D RBC 3.21 L Hgb 10.5 L 9.6 L 9.6 L Hct 31.8 L 29.2 L 29.1 L MCV 91.0 MCH 30.0 MCHC 33.0 RDW 13.5 Plt Count 174 Neut % (Auto) 58.9 Lymph % (Auto) 27.6 [place] % (Auto) 8.5 Eos % (Auto) 4.4 H Baso % (Auto) 0.6 Neut # (Auto) 3000 Lymph # (Auto) 1400 [place] # (Auto) 400 Eos # (Auto) 200 Baso # (Auto) 0 PT 11.8 INR 1.0 Sodium 137 Potassium 3.3 L Chloride 105 Carbon Dioxide 29 BUN 38 H Creatinine 1.02 Estimated GFR > 60 BUN/Creatinine Ratio 37.3 H Glucose 124 H Calcium 8.4 Stl C. cayetanensis PCR Stool Rotavirus (PCR) Stool Adenovirus (PCR) Stool Astrovirus (PCR) Stool Cryptosporidium PCR Stl E.coli Shiga Tox PCR St Sh/Enteroin Ecoli PCR Stl Enterotoxigenic E PCR Stool EPEC (PCR) Stl E. histolytica PCR Stool Giardia Lamblia PCR Stool Sapovirus (PCR) Stl P. shigelloides PCR St Y.enterocolitica PCR Stool Vibrio (PCR) Stl Vibrio cholerae PCR Stl Enteroaggr Ecoli PCR Stl Norovirus GI/GII PCR Campylobacter (PCR) C. difficile Tox (PCR) Salmonella (PCR) [facility] Medical History Stool culture positive for Clostridioides difficile Melena Social History household members: spouse Tobacco & Substance Use Smoking Status: Former smoker alcohol intake: current substance use type: does not use Assessment & Plan Assessment and plan (1) UGIB (upper gastrointestinal bleed): Problem details: Melena / Tarry stool Status: Acute Assessment & Plan narrative: Esophagogastroduodenoscopy recommended for diagnostic and therapeutic purpose. Overview of procedure its risks benefits alternatives discussed. Questions have been answered and he provides informed consent to proceed. Time-Based Coding :: [TOTAL MINUTES] spent with patient and on the chart (including review of chart, obtaining history, exam, reviewing outside data, placing orders, documenting exam and treatment plan, and counseling patient) on [DATE].
--- NOTE | 2024-08-02 15:58 | CM.DANOTE ---
Patient is a 39 yo male who was [place] on 08/01/24 for Upper GI bleed/Ecoli. Pt has [employer] for insurance and his PCP is not listed. EMR was reviewed. Per MD, pt who drinks about 3 drinks a day but no sign of withdrawal and admitted for GI Bleed, CDiff positive but no symptoms and likely a carrier, and Ecoli. Per Surgeon Consult, plan is EGD later today pending OR availability. Per RN, pt is independent in room and has supportive spouse bedside and pt lives in [place] with spouse and works at [employer] and no concerns noted at this time. Due to triage needs, no bedside assessment completed at this time and SW to follow for plan of discharge home with spouse when medically stable pending EGD results. TARAN Jules
--- NOTE | 2024-08-02 16:13 | PM.OP.EGD ---
Operative Date/Time/Diagnoses Date of procedure: 08/02/24 Time of procedure: 16:13 Pre-op diagnosis: GI bleed Post-op diagnosis: other (Duodenitis) Procedure & Clinicians Study performed: Esophagogastroduodenoscopy Same procedure as scheduled: Yes Indications: GI bleed hemodynamically stable Surgeon: Trev Luna Procedure Notes Procedure in detail: The history and physical was performed/updated and the patient is ASA class is 3. The procedure was discussed in detail with the patient. Potential risks complications including infection, bleeding, missed diagnosis, perforation, need for surgery, and were explained. Their questions were answered and informed consent was obtained. Patient placed in left lateral decubitus position. Time out was performed. Procedural sedation was administered by Anesthesia. A bite block was placed. the scope was inserted into the mouth and advanced through the esophagus and into the stomach. The pylorus was intubated and the duodenum was examined to the 2nd portion. The scope was then withdrawn into the stomach and was retroflexed. The stomach was decompressed and scope was withdrawn slowly through the esophagus. FINDINGS -diffuse duodenitis of the 1st and 2nd portion of the duodenal. No active hemorrhage. Biopsies performed with forceps -moderate-size hiatal hernia The patient tolerated the procedure well and will be discharged when they meet criteria. Specimen(s): other (Duodenum) Impression: Duodenitis Post-procedure Plan for aftercare: PPI therapy follow up biopsy Disposition: Acute Care
[2024-08-02] MEDS: LACTATED RINGERS 1,000 ML 42 ML IV (16:36)
--- NOTE | 2024-08-02 18:23 | PC.NURSE ---
pt went for EGD this afternoon; spoke w/ Dr Irizarry post procedure; pt will stay tonight and probably discharge home tomorrow; he was given KCl 40mEq IVPB this morning for potassium level 3.3; pt did not have a BM today
[2024-08-03 05:08] LABS: Prothrombin Time 11.5 SECONDS (9.4-12.5)
[2024-08-03 05:11] LABS: Add Manual Diff / Slide Review NO; Basophils Absolute Auto 0 /uL (0-100); Basophils Percent Auto 0.9 % (0-2); Eosinophils Absolute Auto 300 /uL (0-450); Eosinophils Percent Auto 6.5 % (2-4); Hematocrit 27.7 % (41-53); Hemoglobin 9.2 g/dL (13.5-17.5); Lymphocytes Absolute Auto 1200 /uL (1100-4500); Lymphocytes Percent Auto 28.8 % (25-40); Mean Corpuscular Hemoglobin 30.3 PG (26-34); Mean Corpuscular Volume 91.8 fL (80-100); Monocytes Absolute Auto 300 /uL (0-900); Monocytes Percent Auto 6.7 % (3-14); Neutrophils Absolute Auto 2300 /uL (1500-7000); Neutrophils Percent Auto 57.1 % (50-75); Platelet Count 60 X10^3/uL (150-400); Red Blood Cell Count 3.02 X10^6/uL (4.5-5.9); Red Cell Distribution Width 13.1 % (11.6-14.8); White Blood Cell Count 4.1 X10^3/uL (4.5-11.0)
[2024-08-03 05:26] LABS: BUN Creatinine Ratio 31.8 (6-22); Blood Urea Nitrogen 27 mg/dL (9-20); Calcium 8.5 mg/dL (8.4-10.2); Carbon Dioxide 26 mmol/L (22-32); Chloride 108 mmol/L (98-107); Estimated Glomerular Filt Rate > 60 mL/min (>60); Glucose 108 mg/dL (70-100); HEMOLYSIS 33 (0-50); Potassium 3.7 mmol/L (3.4-5.1); Sodium 138 mmol/L (137-145)
[2024-08-03 07:00] VITALS: BP 119/72; PULSE 70; RESP 20; TEMP 36.6; O2SAT 100
[2024-08-03] MEDS: PANTOPRAZOLE 40 MG VIAL IV (08:45)
[2024-08-03] MEDS: ACETAMINOPHEN 325 MG TABLET 650 MG PO (08:58)
[2024-08-03] MEDS: VANCOMYCIN 125 MG CAPSULE PO ×2 (10:37→15:39)
--- NOTE | 2024-08-03 14:37 | CM.DANOTE ---
Initial DCP Assessment Note Pt is a 39 yo male, resident of [place], admitted INPT for abd pain and upper GI bleed. EGD by Dr Luna 08/02 showed duodenitis and moderate-size hiatal hernia. [facility] Payer: [employer] Reviewed chart, pt discussed in multidisciplinary rounds this morning. JANNY 08/03 or 08/04. Patient lives independently with family and anticipates returning. No barriers identified at this time to patient's safe discharge home w/family to assist; close outpatient f/u recommended. CM team will plan to follow clinical course closely in case any DC needs or concerns arise. 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 No History Provided By Patient,Medical Record Prior Living Arrangements House Household Members spouse Type of transporation used prior to Drives own vehicle admit Independent with ADL's Yes Is patient alert and oriented? Yes Barriers to Discharge No Discharge Plan Home Transportation Arrangement Family Referrals Initiated None needed
[2024-08-03 14:55] LABS: Hematocrit 28.2 % (41-53); Hemoglobin 9.4 g/dL (13.5-17.5)
--- NOTE | 2024-08-03 16:17 | PM.DS.1 ---
History of Present Illness History of Present Illness Date Patient Seen: 08/03/24 Time Patient Seen: 16:17 Date of Onset of Symptoms: 07/31/24 Chief complaint: abd pain, black stool, light headed, sob Narrative: Per admitting provider, Sha De Jesus is a 39 year old , male, with h/o HTN, acid reflux, former smoker, who presented to ED today with complaints of Upper Abd and Lower Chest Discomfort and Tarry stools. He states he noted last evening upper abdominal discomfort, with radiation to , mid abd, james umbilical, lower chest,area, no radiation into his arms, neck or jaw. He also had sme gassiness and Acid reflux symptoms. He denies vomiting, fever, chills, cough , dysuria or hematuria. He went to bed, and was able to sleep, however in the morning, he again noted the abd pain , now at 7/10 and noted his bowel movement, to be tarry formed stool, no BRBPR. He had 3 such BMs, and he was feeling light headed, and very tired with some Shortness of breath with mild exertion as the day progressed. No Syncope.He had nausea, no vomiting, denies bloody or coffee ground vomiting. He had some intermittent flank pain , when he turns in the hospital bed, but its not consistent. He drinks 3 beers, or a glass of wine per day. He has no h/o PUD, Liver Disease, not taking A/C or ASA A week ago, he had noted 2 bouts of yellow watery BMs, with some lower abd cram,ping, which has subsided. He denied any outside food at that time. 2 days ago he had a cheese burger from [employer] but no GI symptoms including Diarrhea or abd pain after eating the burger, until his symptoms yesterday. In ED , he was noted to be tachycardiac ( 92-99), BP stable Afebrile, No Tachypnea, O2 sats 100% on RA Labs Significant for BUN up at 55, H/ H initial 12/ 36.7 repeat HH 10.7/32.7 Mild Leukocytosis WBC 12.4 PT/INR WNL Stool + for C diff and Entero toxigenic E coli He was given IV Protonix at 80 mg IV , and Zofran He had about 6 Tarry BMS while in ED Gen Surgery consulted , and they advised NPO after midnight for EGD in the morning. Pt was referred to Telemedicine Hospitalist for admission, to continue close HH monitoring as well as further Tarry stools and cardio pulmonary status. Discharge Providers Provider Date of admission: 08/01/24 19:28 Discharge Date: 08/05/24 Consults: 08/01/24 18:35 Consult to General Surgery Stat Comment: Consulting Provider: Greg Valle Reason for consultation: GI bleed Has provider been notified: Yes Discharge provider: Jamie Parham DO Summary Hospital Course Discharge Diagnosis: 1. UGIB with melena, present on admission and active. 2. Acute blood loss anemia, present on admission and active. 3. Acute Hypokalemia, present on admission and active. 4. C. diff colitis. 5. Entero toxigenic E Col;i detected on stool analysis 6. Chronic HTN, present on admission and active. Hospital Course: This is a 39 year old male with PMH of HTN who presented with melena, with development of an acute blood loss anemia. EGD was performed which showed mild gastritis, his h/h stabilized with IV PPI given BID. His stools remained slightly dark. He initially did not report diarrhea, though C. diff testing was performed and was positive as was PCR for ETEC, toxin tests are still pending. However later in his stay he did report earlier loose bowel movements. He was started on oral vancomycin for possible C. diff infection. Once his hg stabilized and improved (in the low 9s) and patient was tolerating a diet he was discharged home. His BP was normal without home antihypertensives, so these were held at discharge but he was instructed to restart if his home BP started to increase as his anemia improves. Time Spent with Patient Time spent: Greater than 30 minutes Exam Vital Signs (past 8 hours): Oxygen Delivery Method Room Air Oxygen Flow Rate 0 Narrative Exam Narrative: General adult man alert oriented no acute distress Chest nonlabored respiration Extremities warm well perfused Objective Labs 08/03/24 14:18 08/03/24 04:00 Labs: Laboratory Results - last 24 hr 08/03/24 08/03/24 04:00 14:18 WBC 4.1 L RBC 3.02 L Hgb 9.2 L 9.4 L Hct 27.7 L 28.2 L MCV 91.8 MCH 30.3 MCHC 33.0 RDW 13.1 Plt Count 60 L Neut % (Auto) 57.1 Lymph % (Auto) 28.8 [place] % (Auto) 6.7 Eos % (Auto) 6.5 H Baso % (Auto) 0.9 Neut # (Auto) 2300 Lymph # (Auto) 1200 [place] # (Auto) 300 Eos # (Auto) 300 Baso # (Auto) 0 PT 11.5 INR 1.0 Sodium 138 Potassium 3.7 Chloride 108 H Carbon Dioxide 26 BUN 27 H Creatinine 0.85 Estimated GFR > 60 BUN/Creatinine Ratio 31.8 H Glucose 108 H Calcium 8.5 PFSH Medical History Stool culture positive for Clostridioides difficile Melena Social History household members: spouse Smoking Status: Former smoker alcohol intake: current substance use type: does not use Discharge Plan Discharge Plan Patient Disposition: Home Provider Discharge Comment: You were admitted to the hospital with GI bleed, EGD showed gastritis. Continue pantoprazole. Stool testing was positive for C. diff, complete treatment fully at home. Hold home BP medications for now, if your SBP (Top #) goes above 140 you can resume taking them. Discharge orders & Medications Prescriptions: New vancomycin 125 mg capsule 125 mg PO QID 10 Days Qty: 40 0RF pantoprazole 40 mg tablet,delayed release (DR/EC) 40 mg PO BID 30 Days Qty: 60 0RF Discontinued amlodipine 10 mg tablet 10 mg PO DAILY hydrochlorothiazide 12.5 mg tablet 12.5 mg PO DAILY Diet/Activity/Treatments Diet: Diet as Tolerated and Regular Activity: As tolerated, no restrictions. Visit Report/Discharge Packet Stand Alone Forms: Patient Portal/API, Stroke Signs & Symptoms Quality VTE Deep Vein Thrombosis/Pulmonary Embolism Present on Admission: No
--- NOTE | 2024-08-03 18:10 | PC.NURSE ---
Discharge instructions and provider note regarding work absence provided to patient. Patient and family member left with all patient belongings.
== END 2024-08-03 18:10 | disposition home or self-care (01) | DRG 378 ==
LOC: ED 18:42 → AC 08-02 06:18
PROVIDERS: Hospitalist; Internal Medicine; Surgery; Admitting Provider Hospitalist; Emergency Provider Emergency Medicine; Referring Provider Emergency Medicine; Visit Provider Hospitalist
PROC: 0DJ08ZZ Inspection of Upper Intestinal Tract, Via Natural or Artificial Opening Endoscopic (ICD-10-PCS; principal; 2024-08-02 15:45)
DX: K29.71 Gastritis, unspecified, with bleeding (principal); A04.1 Enterotoxigenic Escherichia coli infection; D62 Acute posthemorrhagic anemia; A04.72 Enterocolitis due to Clostridium difficile, not specified as recurrent; R00.0 Tachycardia, unspecified; K21.9 Gastro-esophageal reflux disease without esophagitis; K44.9 Diaphragmatic hernia without obstruction or gangrene; R53.83 Other fatigue; E87.6 Hypokalemia; R79.89 Other specified abnormal findings of blood chemistry; I10 Essential (primary) hypertension; Z87.891 Personal history of nicotine dependence
CPT/HCPCS: 36415; 43239; 74174; 80048; 80053; 81003; 82272; 85014; 85018; 85025; 85610; 85730; 86850; 86900; 86901; 87324; 87507; 93005; 93010; 96374; 99232; 99284; 99285; J0330; J2270; J2405; J2470; J2704; J3010; Q9967